=== PATIENT | female | born 1975 | race Caucasian/White ===

== ENCOUNTER 2018-06-15 16:45 | Emergency (ER) | payer OTHER ==
[~2018-06-15] VITALS: Ht 160 cm; Wt 95.3 kg
[2018-06-15 17:02] VITALS: BP_SYST 147
[2018-06-15] MEDS ORDERED: NACL 0.9% 1,000 ML IV ONE (17:13)
[2018-06-15] MEDS ORDERED: ONDANSETRON HCL 4 MG/2 ML VIAL IVP ONE (17:15)
[2018-06-15] MEDS ORDERED: MORPHINE 4 MG/ML INJ. SYRINGE IVP ONE (17:15)
[2018-06-15 17:51] LABS: BASOPHILS # (AUTO) 0.1 K/uL (0.0-0.2); BASOPHILS % (AUTO) 1.1 % (0.0-2.0); EOSINOPHILS # (AUTO) 0.1 K/uL (0.0-0.4); EOSINOPHILS % (AUTO) 1.2 % (0.0-4.0); HEMATOCRIT 36.5 % (36-48); HEMOGLOBIN 11.4 g/dL (12.0-16.0); LYMPHOCYTES # (AUTO) 2.2 K/uL (1.0-5.5); LYMPHOCYTES % (AUTO) 25.7 % (20.5-51.5); MEAN CORPUSCULAR HEMOGLOBIN 26 pg (27-31); MEAN CORPUSCULAR HGB CONC 31 % (32-36); MEAN CORPUSCULAR VOLUME 82 fL (79.0-98.0); MONOCYTES # (AUTO) 0.7 K/uL (0.0-1.0); MONOCYTES % (AUTO) 8.5 % (1.7-9.3); NEUTROPHILS # (AUTO) 5.3 K/uL (1.8-7.7); NEUTROPHILS % (AUTO) 63.5 % (40.0-70.0); PLATELET COUNT (AUTO) 427 K/uL (130-430); RED BLOOD CELL COUNT(AUTO) 4.45 MIL/uL (4.2-6.2); RED CELL DISTRIBUTION WIDTH 14.3 % (9.0-15.0); WHITE BLOOD COUNT (AUTO) 8.4 K/uL (4.8-10.8)
[2018-06-15 17:54] LABS: CALCIUM 8.3 mg/dL (8.4-11.0); CREATININE 0.94 mg/dL (0.55-1.30); POTASSIUM 3.7 mmol/L (3.5-5.1)
[2018-06-15 17:58] LABS: ALBUMIN 2.8 g/dL (3.4-4.8); TOTAL BILIRUBIN 0.3 mg/dL (0.0-1.0)
[2018-06-15 17:59] LABS: PROTHROMBIN TIME 9.9 SECS (9.5-12.5)
[2018-06-15 18:26] LABS: BILIRUBIN,URINE NEGATIVE (NEGATIVE); BLOOD, URINE 2+ (NEGATIVE); CLARITY/URINE CLEAR (CLEAR); COLOR,URINE YELLOW (YELLOW); GLUCOSE,URINE 2+ (NEGATIVE); KETONES,URINE NEGATIVE (NEGATIVE); LEUKOCYTE ESTERASE ,URINE NEGATIVE (NEGATIVE); NITRITE, URINE NEGATIVE (NEGATIVE); PH,URINE 5.5 (5.0-8.0); PROTEIN URINE 1+ (NEGATIVE); UROBILINOGEN,URINE 0.2 (0.2-1.0)
[2018-06-15 18:35] LABS: BACTERIA,URINE FEW /HPF (None Seen); YEAST,URINE Few /HPF (None Seen)
[2018-06-15 19:05] VITALS: BP_SYST 130
== END 2018-06-15 19:05 | disposition home or self-care (01) ==
LOC: SED 16:45
DX: K52.9 Noninfective gastroenteritis and colitis, unspecified (principal); G44.209 Tension-type headache, unspecified, not intractable; R11.0 Nausea; E11.9 Type 2 diabetes mellitus without complications; R03.0 Elevated blood-pressure reading, without diagnosis of hypertension
CPT/HCPCS: 36415; 80053; 81000-TC; 81025; 82150-TC; 83690-TC; 85025; 85610-TC; 85730-TC; 99284